=== PATIENT | male | born 1950 | race Caucasian/White ===

== ENCOUNTER 2018-04-13 13:36 | Inpatient (IN) | payer MEDICARE, MEDICAID ==
[~2018-04-13] VITALS: Ht 172.7 cm; Wt 62.6 kg
--- NOTE | 2018-04-13 13:40 | NUR ---
BIB RA 60 FROM [facility], SHORT OF BREATH X 2 DAYS, WORSE X 1 HR ASSOCIATED W/ CHEST PRESSURE, PT WAS PUT ON MONITOR. RT AND MD AT .
[2018-04-13] MEDS ORDERED: IPRATROPIUM NEB FS 0.5 MG/2.5 ML AMPUL.NEB ONE (13:46)
[2018-04-13] MEDS ORDERED: ALBUTEROL FS 2.5 MG/3 ML VIAL.NEB ONE (13:46)
[2018-04-13] MEDS ORDERED: ALBUTEROL FS 2.5 MG/3 ML VIAL.NEB NEB ONE (14:00)
[2018-04-13] MEDS ORDERED: IPRATROPIUM NEB FS 0.5 MG/2.5 ML AMPUL.NEB NEB ONE (14:00)
--- NOTE | 2018-04-13 14:23 | NUR ---
PT UNABLE TO GIVEN URINE AT THIS MOMENT.
[2018-04-13 14:26] LABS: BASOPHILS % (AUTO) 0.2 % (0.0-2.0); EOSINOPHILS % (AUTO) 0.8 % (0.0-6.0); HEMATOCRIT 30 % (39-51); HEMOGLOBIN 9.8 g/dL (13.5-17.5); LYMPHOCYTES # (AUTO) 0.8 /CMM (0.8-4.8); LYMPHOCYTES % (AUTO) 9.2 % (20.0-44.0); MEAN CORPUSCULAR HEMOGLOBIN 31 PG (26.0-33.0); MEAN CORPUSCULAR HGB CONC 33 g/dl (31.0-36.0); MEAN CORPUSCULAR VOLUME 95 fL (80-96); MONOCYTES # (AUTO) 0.1 /CMM (0.1-1.30); MONOCYTES % (AUTO) 1.2 % (2.0-12.0); NEUTROPHILS # (AUTO) 8.1 /CMM (1.8-8.9); NEUTROPHILS % (AUTO) 88.6 % (43.0-81.0); PLATELET COUNT (AUTO) 278 /CMM (150-450); RDW COEFFICIENT OF VARIATION 16.7 (11.5-15.0); RED BLOOD CELL COUNT(AUTO) 3.18 MIL/uL (4.5-6.0); WHITE BLOOD COUNT (AUTO) 9.1 K/uL (4.3-11.0)
[2018-04-13 14:36] LABS: CALCIUM, SERUM 8.7 mg/dL (8.5-10.1); CARBON DIOXIDE 37 mmol/L (21-32); CHLORIDE 101 mmol/L (98-107); CREATININE 0.4 mg/dL (0.6-1.3); GLUCOSE 139 mg/dL (74-106); POTASSIUM 3.6 mmol/L (3.5-5.1); SODIUM SERUM 137 mmol/L (136-145); UREA NITROGEN, BLOOD 30 mg/dL (7-18)
[2018-04-13 14:44] LABS: INR 0.97 (0.85-1.15); TROPONIN I < 0.017 ng/mL (0.00-0.056)
[2018-04-13 14:45] LABS: ALANINE AMINOTRANSFERASE 41 U/L (12-78); ALBUMIN 2.2 g/dL (3.4-5.0); ALKALINE PHOSPHATASE 105 U/L (46-116); ASPARTATE AMINOTRANSFERASE 20 U/L (15-37); BILIRUBIN,DIRECT 0.1 mg/dL (0.0-0.2); BILIRUBIN,TOTAL 0.2 mg/dL (0.2-1.0); TOTAL PROTEIN, SERUM 6.7 g/dL (6.4-8.2)
[2018-04-13] MEDS ORDERED: IV NS 0.9% 500 ML BAG IV ONE (15:00)
[2018-04-13] MEDS ORDERED: GUAI600T53 PO (15:02)
[2018-04-13] MEDS ORDERED: IOHEXOL-350 100 ML VIAL IV ONE (15:05)
[2018-04-13] MEDS ORDERED: CT SWABBABLE VALVE TRANS SET 1 EA INFUS.SET MC ONE (15:05)
[2018-04-13] MEDS ORDERED: IV NS 0.9% 250 ML IV ONE (15:05)
[2018-04-13] MEDS ORDERED: MELA3TAB PO (15:14)
[2018-04-13] MEDS ORDERED: DOCU-141 PO (15:14)
[2018-04-13] MEDS ORDERED: MAGN400O6 PO (15:14)
[2018-04-13] MEDS ORDERED: HEPA50008 SQ (15:14)
[2018-04-13] MEDS ORDERED: ASPI-1152 PO (15:14)
[2018-04-13] MEDS ORDERED: SERT25TA PO (15:14)
[2018-04-13] MEDS ORDERED: POLY17PO4 PO (15:14)
[2018-04-13] MEDS ORDERED: ATOR40TA PO (15:14)
[2018-04-13] MEDS ORDERED: MAGN400T26 PO (15:14)
[2018-04-13] MEDS ORDERED: SENN-167 PO (15:14)
[2018-04-13] MEDS ORDERED: PRED5TAB PO (15:14)
[2018-04-13] MEDS ORDERED: ACID1TAB12 PO (15:14)
[2018-04-13] MEDS ORDERED: IPRA0.2S9 IH (15:14)
[2018-04-13] MEDS ORDERED: LACT20SO4 PO (15:14)
[2018-04-13] MEDS ORDERED: SODI45SP10 NS (15:14)
[2018-04-13] MEDS ORDERED: ACET-868 PO (15:18)
[2018-04-13] MEDS ORDERED: ALBU2.5V38 IH (15:18)
[2018-04-13] MEDS ORDERED: INSU100V27 SQ (15:18)
[2018-04-13] MEDS ORDERED: ONDA4TAB5 PO (15:18)
[2018-04-13] MEDS ORDERED: BLOO-668 IN (15:18)
--- NOTE | 2018-04-13 15:49 | NUR ---
PAGED [facility] FOR PANEL - RIFFLER TENDER LABORATORY COORDINATOR HENRY LEDEZMA
--- NOTE | 2018-04-13 16:17 | NUR ---
CALLED NURSE SUP FOR ICU BED
[2018-04-13 16:38] LABS: APPEARANCE,URINE Cloudy (CLEAR); BILIRUBIN,URINE Negative (NEGATIVE); BLOOD, URINE Moderate Ery/uL (NEGATIVE); COLOR,URINE Yellow (YELLOW); KETONES,URINE Trace (NEGATIVE); LEUKOCYTE ESTERASE ,URINE Negative (NEGATIVE); NITRITE, URINE Negative (NEGATIVE); PROTEIN,URINE 30 mg/dl (NEGATIVE); UGLUCOSE Negative (NEGATIVE); UROBILINOGEN,URINE 0.2 EU/dL (0.2)
[2018-04-13 16:51] LABS: BACTERIA,URINE Moderate /HPF (None Seen); RBC,URINE 21-50 /HPF (0-2)
[2018-04-13 16:52] LABS: SQUAMOUS EPITHELIAL CELL,UR Rare /HPF (None Seen); URINE AMORPHOUS URATE Moderate /HPF (None Seen)
[2018-04-13] MEDS ORDERED: ONDANSETRON HCL/PF 4 MG/2 ML VIAL IVP PRN (17:00)
[2018-04-13] MEDS ORDERED: MORPHINE SULFATE INJ 2 MG/ML DISP.SYRIN IV PRN (17:00)
[2018-04-13] MEDS ORDERED: IPRATROPIUM NEB FS 0.5 MG/2.5 ML AMPUL.NEB NEB PRN (17:00)
[2018-04-13] MEDS ORDERED: LORAZEPAM INJ 2 MG/ML VIAL IV PRN (17:00)
[2018-04-13] MEDS ORDERED: ALBUTEROL FS 2.5 MG/3 ML VIAL.NEB NEB PRN (17:00)
[2018-04-13] MEDS ORDERED: PIPERACILLIN /TAZOBACTAM 3.375 G VIAL IV ONE (17:35)
[2018-04-13] MEDS ORDERED: PIPERACILLIN /TAZOBACTAM 3.375 G in IV NS 0.9% 50 ML IV SCH (18:00)
[2018-04-13] MEDS ORDERED: PIPERACILLIN /TAZOBACTAM 3.375 G in IV D5W 50 ML IV SCH (18:00)
[2018-04-13 18:10] VITALS: BP 129/80
--- NOTE | 2018-04-13 18:10 | NUR ---
APPEALS MANAGER DIDIER E RECEIVED PATIENT FROM ER WITH DX PNA UNDER CARE HENRY RN SPECIALIST MANAGERS ,PATIENT ALERT , ORIENTED X4, SPEAKS KYRGYZ AND POLISH ,PLACED ON TELE MONITOR SR 88 ,PLACED ON IVF ORDERED , HOSPITAL ORIENTATION DONE ,VS TAKEN BODY CHECK , PICTURE DONE ON 7L BY SKYE GONZALEZ NO SOB NOTED SAT 985 , ALL NEEDS ATTENDED ,WILL CONT TO MONITOR CLOSELY , AT BEDSIDE
[2018-04-13] MEDS: PANTOPRAZOLE 40 MG VIAL IV SCH (18:41)
[2018-04-13] MEDS: ENOXAPARIN SODIUM 30 MG/0.3 ML DISP.SYRIN SQ SCH (18:42)
[2018-04-13] MEDS: IV NS 0.9% 1,000 ML IV PRN (19:02)
--- NOTE | 2018-04-13 19:30 | NUR ---
PRODUCTION ASSOCIATE: RECEIVED PT ALERT AND ORIENTED X 3. ON 7L 02 VIA FACE MASK WT TACHYPNEA AND SHORTNESS OF BREATH. O2 SAT ABOVE 94%. NO C/O PAIN AT THIS TIME. AFEBRILE. SR WT OCCASIONAL PVCs ON BASEBALL PLAYER. BP WNL. ABLE TO USE URINAL. RFA IV RUNNING NS AT 75ML/HR WT NO S/S OF INFILTRATION. PLACED ON HIGH-DE JESUS'S. SAFETY PRECAUTION NOTED. WILL CONTINUE TO MONITOR. CALL LIGHT WITHIN REACH.
[2018-04-13 20:00] VITALS: BP 128/78
[2018-04-13 21:00] VITALS: BP 121/74
[2018-04-13 22:01] VITALS: BP 132/86
[2018-04-13 23:00] VITALS: BP 130/80
[2018-04-14] VITALS (27 sets, daily range): BP systolic 97–172; BP diastolic 56–111
--- NOTE | 2018-04-14 | NUR ---
BUREAU DIRECTOR: PLACED ON 5L 02 VIA FACE MASK. C/O GEN. BODY PAIN (11/11) AND REQUESTED TYLENOL. MD INFORMED AND AGREED TO GIVE TYLENOL.
[2018-04-14] MEDS: PIPERACILLIN /TAZOBACTAM 3.375 G in IV D5W 50 ML IV SCH ×5 (00:05→23:54)
[2018-04-14] MEDS: ACETAMINOPHEN 325 MG TABLET PO PRN ×2 (00:06→21:08)
--- NOTE | 2018-04-14 01:00 | NUR ---
MARINE DRAFTER: REASSESSED AFTER GIVEN TYLENOL WT GOOD EFFECT. PT. VERBALIZED RELIEF FROM GEN. BODY PAIN (0/10). REQUESTED TO BE PLACED ON NASAL CANNULA AT 4LPM. NO ACUTE DISTRESS. WILL CONTINUE TO MONITOR.
--- NOTE | 2018-04-14 04:05 | NUR ---
LOCAL COMPANY TANKER DRIVER: ATIVAN GIVEN FOR ANXIETY M/B RESTLESSNESS. REFUSED AM CARE AT THIS TIME. WILL TRY AGAIN LATER. SAFETY PRECAUTION NOTED.
--- NOTE | 2018-04-14 04:30 | NUR ---
WAITRESS: REASSESSED AFTER GIVEN ATIVAN FOR RESTLESSNESS AND ANXIETY WT GOOD EFFECT. PT. EYES CLOSED, EASILY AROUSED WHEN CALLED BY NAME. NO ACUTE DISTRESS. NO RESTLESSNESS AT THIS TIME. STILL ON 4L 02 VIA NC. WILL CONTINUE TO MONITOR.
--- NOTE | 2018-04-14 06:35 | NUR ---
PHARMACIST TECHNICIAN: STILL ON 4L 02 VIA NC WT NO ACUTE DISTRESS. NO EVIDENCE OF DISCOMFORT. PT ASLEEP AT THIS TIME. SAFETY PRECAUTION NOTED AT ALL TIMES.
--- NOTE | 2018-04-14 07:00 | NUR ---
RN INITIAL NOTES RECEIVED PT A/OX1 WITH CONFUSION. ON 02 AT 4LPM VIA NC. HOB ELEVATED. NO SIGNS OF PAIN NOTED. NO SOB NOTED. IV LINE IN PLACE. IVF INFUSING. PT REPOSITIONED. BLE ELEVATED. WILL MONITOR.
[2018-04-14] MEDS: IV NS 0.9% 1,000 ML IV PRN (07:34)
[2018-04-14 08:23] LABS: ABG BASE EXCESS 7.3 mmol/L; ABG PCO2 63.9 mmHg (35.0-45.0); ABG PH 7.346 (7.350-7.450); ABG PO2 138.2 mmHg (75.0-100.0); AaDO2 15.2 mmHg; COHb 0.3 % (0.5-1.5); MetHb 0.4 % (0.0-1.5); O2Hb 97.3 % (94.0-97.0); SITE, ABG Left Radial; VENT MODE, BG Nasal Cannula
[2018-04-14] MEDS: PANTOPRAZOLE 40 MG VIAL IV SCH (08:26)
--- NOTE | 2018-04-14 08:28 | NUR ---
RT ABG DONE NOTIFIED DR. AGUILAR WITH RESULTS, PLACED ON BIPAP PER MD.
[2018-04-14] MEDS ORDERED: Medication Not On Formulary EA (Albuterol Sulfate 2.5 MG) IH PRN (08:30)
--- NOTE | 2018-04-14 08:30 | NUR ---
RN NOTES 0815 SEEN AND EXAMINED BY DR AGUILAR. REVIEWED H&P AND MEDICATIONS. AWARE OF LAB VALUES AND IMAGING STUDIES. MD ORDERED ADDITIONAL LABS INCLUDING ABG. 0830 DR AGUILAR AWARE OF ABG RESULT. ORDERED TO PUT PT ON BIPAP. PT KEPT HOB ELEVATED. WILL CLOSELY MONITOR.
[2018-04-14 08:40] LABS: BASOPHILS % (AUTO) 0.2 % (0.0-2.0); EOSINOPHILS % (AUTO) 0.4 % (0.0-6.0); HEMATOCRIT 26 % (39-51); HEMOGLOBIN 8.3 g/dL (13.5-17.5); LYMPHOCYTES # (AUTO) 0.9 /CMM (0.8-4.8); LYMPHOCYTES % (AUTO) 15.4 % (20.0-44.0); MEAN CORPUSCULAR HEMOGLOBIN 31 PG (26.0-33.0); MEAN CORPUSCULAR HGB CONC 32 g/dl (31.0-36.0); MEAN CORPUSCULAR VOLUME 98 fL (80-96); MONOCYTES # (AUTO) 0.1 /CMM (0.1-1.30); MONOCYTES % (AUTO) 1.4 % (2.0-12.0); NEUTROPHILS % (AUTO) 82.6 % (43.0-81.0); PLATELET COUNT (AUTO) 256 /CMM (150-450); RDW COEFFICIENT OF VARIATION 17.8 (11.5-15.0); RED BLOOD CELL COUNT(AUTO) 2.71 MIL/uL (4.5-6.0); WHITE BLOOD COUNT (AUTO) 6.1 K/uL (4.3-11.0)
[2018-04-14 08:56] LABS: CALCIUM, SERUM 7.8 mg/dL (8.5-10.1); CREATININE 0.5 mg/dL (0.6-1.3); MAGNESIUM 1.7 mg/dL (1.8-2.4); PHOSPHORUS 2.2 mg/dL (2.5-4.9); POTASSIUM 3.2 mmol/L (3.5-5.1)
[2018-04-14 08:58] LABS: IRON, SERUM 74 ug/dl (50-175); TOTAL IRON BINDING CAPACITY 177 ug/dl (250-450)
[2018-04-14 09:00] LABS: TROPONIN I < 0.017 ng/mL (0.00-0.056)
[2018-04-14] MEDS: ASPIRIN EC 81 MG TABLET.DR PO SCH (09:00)
[2018-04-14 09:09] LABS: CHOLESTEROL 130 mg/dL (<200); FERRITIN 215 ng/mL (8-388); HDL CHOLESTEROL 39 mg/dL (40-60); LDL 67 mg/dL (0-99); THYROID STIMULATING HORMONE 2.191 uIU/mL (0.358-3.74); TRIGLYCERIDES 169 mg/dL (30-150)
--- NOTE | 2018-04-14 09:53 | NUR ---
RT NOTE: PER HENRY LEDEZMA(BLOOD BANK ASSISTANT) PATIENT LOOKS MORE ALERT AND ORDERED TO TAKE BIPAP OFF. PATIENT WAS TAKEN OFF BIPAP AND PLACED ON 3LPM VIA NASAL CANNULA. PATIENT STATES THAT HE FEELS BETTER. RR=30-35 BPM AND SP02=95%. WILL CONTINUE TO MONITOR.
[2018-04-14] MEDS ORDERED: POTASSIUM CHLORIDE 20 MEQ TAB.PRT.SR PO ONE (10:00)
[2018-04-14] MEDS ORDERED: Magnesium 1GM/D5W 100ML PREMIX 100 ML IV ONE (10:00)
[2018-04-14] MEDS: predniSONE 10 MG TABLET PO SCH ×2 (10:00→13:13)
--- NOTE | 2018-04-14 11:21 | NUR ---
RN NOTE: PATIENT REFUSED TO EAT BREAKFAST, ASLEEP, EASILY AROUSAL. PO MEDS NOT GIVEN DUE TO PATIENT'S CONDITION. DESATURATES 80S. RT AT BEDSIDE.
[2018-04-14] MEDS ORDERED: K PHOS NEUTRAL 250 MG TABLET PO ONE (11:30)
--- NOTE | 2018-04-14 11:37 | NUR ---
RT PT SPO2 DROPPED. PLACED BACK ON BIPAP. FAMILY MEMBER REFUSED. PLACED PT ON VENTURI MASK 12L 40%, PT SPO2 INCREASED TO 95% WILL CONTINUE TO MONITOR. RN NOTIFIED.
[2018-04-14] MEDS: POTASSIUM CL. PREMIX PERIPHER. 50 ML IV SCH ×2 (11:46→13:15)
[2018-04-14] MEDS ORDERED: NEUTRA PHOS 1 POWD.PACKET PO ONE (12:30)
[2018-04-14] MEDS: IPRATROPIUM NEB FS 0.5 MG/2.5 ML AMPUL.NEB IH SCH ×2 (12:59→19:30)
[2018-04-14] MEDS: BISACODYL SUPP (10 MG) 10 MG/SUPP.RECT SUPP.RECT RC PRN (14:20)
[2018-04-14] MEDS: methylPREDNISolone SOD SUCC 125 MG/2ML VIAL IV SCH ×2 (14:56→21:07)
[2018-04-14] MEDS: ALBUTEROL FS 2.5 MG/3 ML VIAL.NEB NEB SCH ×3 (15:19→22:57)
[2018-04-14] MEDS: IPRATROPIUM NEB FS 0.5 MG/2.5 ML AMPUL.NEB NEB SCH ×3 (15:19→22:57)
--- NOTE | 2018-04-14 17:32 | NUR ---
RN NOTES; PATIENT ALERT AWAKE ORIENTED X 3. ABLE TO VERBALIZE NEEDS. CONTINUE ON OXYGEN THERAPY VIA VENTURI MASK. TITRATION PER RT. MAINTAINS SPO2 >91%. EPISODES OF SOB. CONTINUE ON SOLU-MEDROL IV & ATB THERAPY. ALL NEEDS ATTENDED. C/O CONSTIPATION, RECTAL SUPPOSITORY WAS GIVEN PER HENRY N.P's ORDER, EFFECTIVE. BOWEL MOVEMENT X1 DURING SHIFT. SAFETY MEASURES OBSERVED. CALL LIGHT WITHIN REACH. WILL CONTINUE TO MONITOR.
--- NOTE | 2018-04-14 17:57 | NUR ---
RN NOTE: PATIENT REFUSED TO NASAL SWAB FOR INFLUENZA ROUTINE. EXPLAINED PROCEDURE, RISK & BENEFITS, STILL REFUSED. RESPECT PATIENT RIGHTS. WILL ATTEMPT LATER.
--- NOTE | 2018-04-14 18:06 | NUR ---
RN NOTE: INFLUENZA SWAB COLLECTED BY COKE BURNER.
--- NOTE | 2018-04-14 20:00 | NUR ---
RN INITIAL NOTES RECEIVED PT IN BED, A & O X3, AT BED SIDE. ON VENTURI MASK @ 35%. HOB ELEVATED. NO SIGNS OF PAIN NOTED. NO SOB NOTED. IV LINE IN PLACE S/L. PT REPOSITIONED. BLE ELEVATED. CALL LIGHT WITHIN REACH. BED IN LOW LOCKED POSITION. WILL CONT TO MONITOR.
--- NOTE | 2018-04-14 20:46 | NUR ---
RECEIVED PT ON VENTURI MASK 35%. PT IS AWAKE AND ALERT. NO RESP DISTRESS. PT IS RECEIVING Q4 BREATHING TX. O2 SAT 96%. AT BEDSIDE. WILL CONTINUE TO MONITOR.
[2018-04-14] MEDS: ATORVASTATIN 40 MG TABLET PO SCH (21:08)
[2018-04-14] MEDS: ENOXAPARIN SODIUM 30 MG/0.3 ML DISP.SYRIN SQ SCH (21:08)
[2018-04-15] VITALS (24 sets, daily range): BP systolic 116–153; BP diastolic 68–89
[2018-04-15] MEDS: IPRATROPIUM NEB FS 0.5 MG/2.5 ML AMPUL.NEB IH SCH ×4 (01:30→19:30)
[2018-04-15] MEDS: ALBUTEROL FS 2.5 MG/3 ML VIAL.NEB NEB SCH ×6 (03:20→23:29)
[2018-04-15] MEDS: IPRATROPIUM NEB FS 0.5 MG/2.5 ML AMPUL.NEB NEB SCH ×6 (03:20→23:29)
[2018-04-15 04:35] LABS: BASOPHILS % (AUTO) 0.2 % (0.0-2.0); HEMATOCRIT 27 % (39-51); HEMOGLOBIN 8.9 g/dL (13.5-17.5); LYMPHOCYTES # (AUTO) 0.9 /CMM (0.8-4.8); LYMPHOCYTES % (AUTO) 10.1 % (20.0-44.0); MEAN CORPUSCULAR HEMOGLOBIN 32 PG (26.0-33.0); MEAN CORPUSCULAR HGB CONC 33 g/dl (31.0-36.0); MEAN CORPUSCULAR VOLUME 97 fL (80-96); MONOCYTES # (AUTO) 0.2 /CMM (0.1-1.30); MONOCYTES % (AUTO) 1.8 % (2.0-12.0); NEUTROPHILS # (AUTO) 7.7 /CMM (1.8-8.9); NEUTROPHILS % (AUTO) 87.9 % (43.0-81.0); PLATELET COUNT (AUTO) 272 /CMM (150-450); RDW COEFFICIENT OF VARIATION 16.9 (11.5-15.0); RED BLOOD CELL COUNT(AUTO) 2.78 MIL/uL (4.5-6.0); WHITE BLOOD COUNT (AUTO) 8.8 K/uL (4.3-11.0)
[2018-04-15 04:53] LABS: ALANINE AMINOTRANSFERASE 36 U/L (12-78); ALBUMIN 2.1 g/dL (3.4-5.0); ALKALINE PHOSPHATASE 86 U/L (46-116); ASPARTATE AMINOTRANSFERASE 15 U/L (15-37); BILIRUBIN,TOTAL 0.2 mg/dL (0.2-1.0); CARBON DIOXIDE 37 mmol/L (21-32); CHLORIDE 100 mmol/L (98-107); CREATININE 0.4 mg/dL (0.6-1.3); GLUCOSE 168 mg/dL (74-106); MAGNESIUM 1.9 mg/dL (1.8-2.4); PHOSPHORUS 2.3 mg/dL (2.5-4.9); POTASSIUM 3.3 mmol/L (3.5-5.1); SODIUM SERUM 138 mmol/L (136-145); UREA NITROGEN, BLOOD 17 mg/dL (7-18)
[2018-04-15 04:55] LABS: TROPONIN I < 0.017 ng/mL (0.00-0.056)
[2018-04-15] MEDS: PIPERACILLIN /TAZOBACTAM 3.375 G in IV D5W 50 ML IV SCH ×3 (05:08→17:11)
[2018-04-15] MEDS: methylPREDNISolone SOD SUCC 125 MG/2ML VIAL IV SCH ×3 (05:08→21:05)
--- NOTE | 2018-04-15 06:07 | NUR ---
RN CLOSING NOTES NO SIGNIFICANT CHANGE IN PT CONDITION OVER NIGHT. WILL ENDORSE TO AM RN
[2018-04-15] MEDS: ACETAMINOPHEN 325 MG TABLET PO PRN (06:12)
--- NOTE | 2018-04-15 08:00 | NUR ---
ICU/RN AM SHIFT INITIAL NOTES RECEIVED PT AWAKE SITTING IN BED, HAVING ON GOING BREATHING TX, PT A/O X 3, NO ACUTE RESPIRATORY DISTRESS, PT NOTED TO BE ANXIOUS, SATURATING @ 94%, DIMINISHED LUNG SOUNDS, ON TELE MONITORING WITH SINUS RHYTHM, HR 83. IV SITES PATENT WITH NO S/S OF INFECTION, ON TKO. PT IS COMFORTABLE, SCHEDULED AM MEDS TO BE GIVEN. CL WITHIN REACHED AND SAFETY MAINTAINED. ON GOING MONITORING.
[2018-04-15] MEDS: ASPIRIN EC 81 MG TABLET.DR PO SCH (08:28)
[2018-04-15] MEDS: PANTOPRAZOLE 40 MG VIAL IV SCH (08:28)
--- NOTE | 2018-04-15 09:08 | NUR ---
ICU/RN MEDICAL RECORDS - CHEST CT SCAN CONSENT OBTAINED FROM PT TO RELEASE RESULT OF CHEST CT SCAN PRE-SURGERY LAST FEBRUARY 12, 2018. REQUEST FORM TO RELEASE SAID INFORMATION FAXED TO [facility] MEDICAL RECORDS WITH CONFIRMATION OF RECEIVED RECORDS, FILED IN PT'S CHART. Addendum: 04/15/18 at 1124 by ZAID BROWN RN ADDENDUM: ADDITIONAL REQUEST FOR INFORMATION ADDED ON INFO REQUEST FORM ORDERED BY DR. GUERRIER, FAXED.
[2018-04-15] MEDS: POTASSIUM CL. PREMIX PERIPHER. 50 ML IV SCH ×2 (09:54→10:52)
--- NOTE | 2018-04-15 10:45 | NUR ---
ICU/RN ROUNDS - DR. GUERRIER PT SEEN & EXAMINED BY DR. GUERRIER, WITH VERBAL ORDERS TO OBTAIN MEDICAL RECORDS TO INCLUDE PATHOLOGY RESULTS. ORDER NOTED AND CARRIED, TO ADD REQUEST TO INFORMATION RELEASE.
[2018-04-15] MEDS ORDERED: K PHOS NEUTRAL 250 MG TABLET PO ONE (11:00)
--- NOTE | 2018-04-15 11:00 | NUR ---
ICU/RN ROUNDS - DR. THRASHER UPDATED PT'S CONDITION. PT SEEN & EXAMINED BY DR. THRASHER. WITH VERBAL ORDER RECEIVED TO DRAW ABG. RT NOTIFIED.
[2018-04-15 12:02] LABS: THYROID STIMULATING HORMONE 1.213 uIU/mL (0.358-3.74); URIC ACID 1.8 mg/dL (2.6-7.2)
[2018-04-15 12:16] LABS: RETICULOCYTE COUNT 1.6 % (0.6-2.5)
--- NOTE | 2018-04-15 15:29 | NUR ---
ICU/RN ROUNDS - DR. CURRY PT SEEN & EXAMINED BY DR. CURRY. NO NEW ORDERS RECEIVED, BUT PLACED A NOTES TO RELAY RESULTS OF SPUTUM CULTURE ONCE AVAILABLE. MONITORING CONTINUED.
[2018-04-15 16:03] LABS: OCCULT BLOOD STOOL NEGATIVE (NEGATIVE)
--- NOTE | 2018-04-15 17:21 | NUR ---
ICU/RN AFTERNOON ROUNDS PT'S ASSISTED IN PROVIDING PM CARE, NO ACUTE CHANGE OF CONDITION. ON GOING MONITORING.
--- NOTE | 2018-04-15 19:22 | NUR ---
ICU/RN AM SHIFT END NOTES ALL NEEDS MET, NO ACUTE CHANGE OF CONDITION NOTED DURING THE SHIFT. PT ENDORSED TO PM NURSE TO CONTINUE CARE. CL WITHIN REACHED AND SAFETY MAINTAINED.
--- NOTE | 2018-04-15 19:30 | NUR ---
RN INITIAL NOTES RECEIVED PATIENT IN BED, AWAKE, ALERT AND ORIENTED X 3. ON 9L 02 VIA FACE VENTURI MASK, FIO2 35%, TOLERATING WELL. O2 SAT ABOVE 94%.DENIES ANY PAIN OR DISCOMFORT AT THIS TIME. AFEBRILE. SR ON VP SECURITY. BP WNL. ABLE TO USE URINAL. IVs PATENT AND INTACT, FLUSHED WITH NS, NO S/S OF INFILTRATION OR PHLEBITIS NOTED. PLACED ON HIGH-DE JESUS'S POSITION FOR COMFORT. SAFETY PRECAUTIONS OBSERVED. BED IN LOWEST AND LOCKED POSITION, CALL LIGHT LEFT WITHIN EASY REACH. WILL CONTINUE TO CLOSELY MONITOR
--- NOTE | 2018-04-15 20:12 | NUR ---
PT IS AWAKE AND ALERT. NO RESP DISTRESS. PT IS ON VENTURI MASK 35%. PT IS RECEIVING Q4 BREATHING TX. O2 SAT 99%. WILL CONTINUE TO MONITOR.
[2018-04-15] MEDS: ATORVASTATIN 40 MG TABLET PO SCH (21:05)
[2018-04-15] MEDS: ENOXAPARIN SODIUM 30 MG/0.3 ML DISP.SYRIN SQ SCH (21:08)
[2018-04-16] VITALS (25 sets, daily range): BP systolic 122–159; BP diastolic 75–105
--- NOTE | 2018-04-16 | NUR ---
RN NOTES PATIENT REFUSING PHOTOS TO BE TAKEN OF WOUNDS/SKIN ISSUES. EXPLAINED RISKS AND CONSEQUENCES. PATIENT VERBALIZES UNDERSTANDING BUT STILL STRONGLY REFUSING. WILL TRY AGAIN AT A LATER TIME
[2018-04-16] MEDS: PIPERACILLIN /TAZOBACTAM 3.375 G in IV D5W 50 ML IV SCH ×4 (00:03→17:04)
[2018-04-16] MEDS: IPRATROPIUM NEB FS 0.5 MG/2.5 ML AMPUL.NEB IH SCH ×3 (01:15→11:18)
[2018-04-16] MEDS: IPRATROPIUM NEB FS 0.5 MG/2.5 ML AMPUL.NEB NEB SCH ×7 (03:06→23:20)
[2018-04-16] MEDS: ALBUTEROL FS 2.5 MG/3 ML VIAL.NEB NEB SCH ×6 (03:06→23:22)
--- NOTE | 2018-04-16 04:00 | NUR ---
RN NOTES PATIENT STILL HAS NOT PROVIDED SPUTUM SAMPLE. PATIENT STATES "LATER". PATIENT ALSO REFUSING SPUTUM INDUCTION
[2018-04-16 04:38] LABS: HEMATOCRIT 30 % (39-51); HEMOGLOBIN 9.5 g/dL (13.5-17.5); LYMPHOCYTES # (AUTO) 0.8 /CMM (0.8-4.8); MEAN CORPUSCULAR HEMOGLOBIN 31 PG (26.0-33.0); MEAN CORPUSCULAR HGB CONC 32 g/dl (31.0-36.0); MEAN CORPUSCULAR VOLUME 97 fL (80-96); MONOCYTES # (AUTO) 0.2 /CMM (0.1-1.30); MONOCYTES % (AUTO) 1.8 % (2.0-12.0); NEUTROPHILS # (AUTO) 11.1 /CMM (1.8-8.9); NEUTROPHILS % (AUTO) 91.2 % (43.0-81.0); PLATELET COUNT (AUTO) 311 /CMM (150-450); RDW COEFFICIENT OF VARIATION 17.5 (11.5-15.0); RED BLOOD CELL COUNT(AUTO) 3.06 MIL/uL (4.5-6.0); WHITE BLOOD COUNT (AUTO) 12.2 K/uL (4.3-11.0)
[2018-04-16 04:58] LABS: CALCIUM, SERUM 8.5 mg/dL (8.5-10.1); CREATININE 0.7 mg/dL (0.6-1.3); POTASSIUM 3.8 mmol/L (3.5-5.1)
[2018-04-16] MEDS: methylPREDNISolone SOD SUCC 125 MG/2ML VIAL IV SCH ×3 (05:10→21:22)
--- NOTE | 2018-04-16 06:40 | NUR ---
PHOTO COLORER CLOSING NOTES PATIENT RESTING IN BED, APPEARS COMFORTABLY, NOT IN ANY ACUTE DISTRESS. DENIES PAIN OR DISCOMFORT. ALL NEEDS MET THROUGHOUT THE SHIFT. WILL ENDORSE THE PATIENT TO THE AM SHIFT NURSE FOR CONTINUITY OF CARE.
--- NOTE | 2018-04-16 07:30 | NUR ---
ICU/RN: Pt received in bed, calm, cooperative, no distress noted. On venturi mask, tolerating well. SOB noted with turning and repositioning. Does not tolerate ADLs well.
[2018-04-16] MEDS: ASPIRIN EC 81 MG TABLET.DR PO SCH (08:10)
[2018-04-16] MEDS: PANTOPRAZOLE 40 MG VIAL IV SCH (08:10)
--- NOTE | 2018-04-16 09:10 | NUR ---
ICU/RN: Micky Siddiqui NP at bedside; updated on pt status. New orders noted and carried out.
[2018-04-16] MEDS: POTASSIUM CHLORIDE 20 MEQ TAB.PRT.SR PO SCH ×3 (09:18→12:41)
[2018-04-16] MEDS: FUROSEMIDE 40 MG/4 ML VIAL IV SCH ×2 (09:18→12:52)
--- NOTE | 2018-04-16 10:15 | NUR ---
ICU/RN: Dr Alvarado at bedside. Updated on pt status. [facility] records reviewed by .
[2018-04-16 10:17] LABS: *SPE A/G RATIO 0.8 (0.7-1.7); *SPE ALBUMIN 2.2 g/dL (2.9-4.4); *SPE ALPHA-1-GLOBULIN 0.3 g/dL (0.0-0.4); *SPE ALPHA-2-GLOBULIN 0.8 g/dL (0.4-1.0); *SPE BETA GLOBULIN 0.9 g/dL (0.7-1.3); *SPE GLOBULIN, TOTAL 2.9 g/dL (2.2-3.9); *SPE M-SPIKE Not Observed g/dL (Not Observed)
--- NOTE | 2018-04-16 11:03 | NUR ---
WOUND CARE CONSULT: PT PRESENTS CONTINENT AND ABLE TO ASSIST WITH TURNING AND REPOSITIONING IN BED. PT HAS DISCOLORATION ON RT UPPER BACK AND INCISION TO LEFT UPPER BACK WITH OPEN AREA AT EDGE OF INCISION. RECOMMEND SURGICAL CONSULT. ALL SKIN PROTECTION RECOMMENDATIONS DISCUSSED WITH NURSING STAFF. FOAM DRESSING LEFT IN PLACE ON LEFT UPPER BACK AREA. DEFER TO SURGICAL TEAM FOR WOUND TREATMENT PLAN. MD IN AGREEMENT WITH PLAN OF CARE. Addendum: 04/16/18 at 1105 by YESI APONTE WNDNU Amended: Links added.
--- NOTE | 2018-04-16 16:45 | NUR ---
ICU/RN: Dr Garza at bedside. Updated on pt status. Aware that pt is refusing sputum induction; pt does not have s/s coughing, unable to expectorate.
--- NOTE | 2018-04-16 19:22 | NUR ---
ICU/RN: Pt in stable condition, no distress noted. Assisted with feeding, requires frequent brakes due to desaturation when not laying flat. Bedside report given to RN for JESUS.
--- NOTE | 2018-04-16 19:30 | NUR ---
MATERIAL WORKER INITIAL NOTE RECEIVED PATIENT AWAKE ALERT AND ORIENTED, ABLE TO MAKE SIMPLE NEEDS KNOWN. RESPIRATIONS EVEN AND UNLABORED ON VENTURI MASK 9LPM WITH FIO2 35%, SPO2 96%. ON TELE MONITOR SR WITH OCC PVCS. NO S/S OF PAIN OR DISCOMFORT. DINNER AT BEDSIDE FROM HOME, ASSISTED PATIENT WITH FEEDING PATIENT TOLERATES. PATIENT PREFERS LAYING FLAT. SKIN WARM AND DRY TO TOUCH. SIDE RAILS UP AND LOCKED. BED KEPT AT LOWEST POSITION. CALL LIGHT KEPT WITHIN EASY REACH. WILL CONTINUE TO MONITOR.
--- NOTE | 2018-04-16 20:06 | NUR ---
CANDLE MOLDER HAND NOTE PATIENT REFUSED BREATHING TX
--- NOTE | 2018-04-16 20:15 | NUR ---
CASER NOTE AT BEDSIDE, PATIENT TOOK BREATHING TX
--- NOTE | 2018-04-16 20:32 | NUR ---
TRAILER CHIEF NOTE AT BEDSIDE, NUMBER FOR ONCOLOGIST GIVEN. DR. ANDIE CROSS [phone] ([facility]ICE) [phone] ([facility] OFFICE)
--- NOTE | 2018-04-16 21:06 | NUR ---
DISTRICT SALES MANAGER NOTE PATIENT REQUESTING FOR SLEEPING MEDICATION, AT BEDSIDE. MD MADE AWARE, WITH NEW ORDERS NOTED.
[2018-04-16] MEDS ORDERED: TEMAZEPAM 7.5 MG CAPSULE ONE (21:20)
[2018-04-16] MEDS: ATORVASTATIN 40 MG TABLET PO SCH (21:21)
[2018-04-16] MEDS: ENOXAPARIN SODIUM 30 MG/0.3 ML DISP.SYRIN SQ SCH (21:22)
[2018-04-16] MEDS ORDERED: TEMAZEPAM 15 MG CAPSULE PO PRN (21:30)
[2018-04-17] VITALS (25 sets, daily range): BP systolic 122–161; BP diastolic 65–110
--- NOTE | 2018-04-17 | NUR ---
CRANE OPERATOR NOTE PATIENT SLEEPING COMFORTABLY. NO RESPIRATORY DISTRESS NOTED. WILL CONTINUE TO MONITOR.
[2018-04-17] MEDS: PIPERACILLIN /TAZOBACTAM 3.375 G in IV D5W 50 ML IV SCH ×5 (00:36→23:55)
[2018-04-17] MEDS: ALBUTEROL FS 2.5 MG/3 ML VIAL.NEB NEB SCH ×6 (03:30→23:17)
[2018-04-17] MEDS: IPRATROPIUM NEB FS 0.5 MG/2.5 ML AMPUL.NEB NEB SCH ×6 (03:40→23:17)
[2018-04-17 04:40] LABS: HEMATOCRIT 34 % (39-51); HEMOGLOBIN 10.8 g/dL (13.5-17.5); LYMPHOCYTES % (AUTO) 5.7 % (20.0-44.0); MEAN CORPUSCULAR HEMOGLOBIN 31 PG (26.0-33.0); MEAN CORPUSCULAR HGB CONC 32 g/dl (31.0-36.0); MEAN CORPUSCULAR VOLUME 97 fL (80-96); MONOCYTES # (AUTO) 0.3 /CMM (0.1-1.30); MONOCYTES % (AUTO) 1.8 % (2.0-12.0); NEUTROPHILS # (AUTO) 15.9 /CMM (1.8-8.9); NEUTROPHILS % (AUTO) 92.5 % (43.0-81.0); PLATELET COUNT (AUTO) 382 /CMM (150-450); RDW COEFFICIENT OF VARIATION 16.6 (11.5-15.0); RED BLOOD CELL COUNT(AUTO) 3.46 MIL/uL (4.5-6.0); WHITE BLOOD COUNT (AUTO) 17.2 K/uL (4.3-11.0)
[2018-04-17 05:03] LABS: ALBUMIN 2.5 g/dL (3.4-5.0); BILIRUBIN,TOTAL 0.3 mg/dL (0.2-1.0); CALCIUM, SERUM 8.4 mg/dL (8.5-10.1); CREATININE 0.6 mg/dL (0.6-1.3); MAGNESIUM 1.9 mg/dL (1.8-2.4); PHOSPHORUS 3.1 mg/dL (2.5-4.9); POTASSIUM 3.8 mmol/L (3.5-5.1); TOTAL PROTEIN, SERUM 6.9 g/dL (6.4-8.2)
--- NOTE | 2018-04-17 05:26 | NUR ---
COMPENSATION PROGRAMS MANAGER NOTE RELAYED TO MD CRITICAL CO2 LEVEL 42, TRENDING UP FROM PREVIOUS 39, WITH NNO AT THIS TIME.
[2018-04-17] MEDS: methylPREDNISolone SOD SUCC 125 MG/2ML VIAL IV SCH ×3 (05:56→21:33)
--- NOTE | 2018-04-17 06:00 | NUR ---
REHAB TRAINER NOTE BED BATH GIVEN, LINEN CHANGED, PATIENT TOLERATED WELL.
--- NOTE | 2018-04-17 07:20 | NUR ---
RAYMOND MILL OPERATOR CLOSING NOTE NO SIGNIFICANT CHANGES OVERNIGHT, PATIENT SLEPT INTERMITTENTLY. NO C/O PAIN OR DISCOMFORT. TOLERATING VENTURI MASK 35%. KEPT CLEAN AND DRY. ALL NEEDS ANTICIPATED AND MET. SIDE RAILS UP AND LOCKED. BED KEPT AT LOWEST POSITION. CALL LIGHT KEPT WITHIN EASY REACH. CONTINUITY OF CARE ENDORSED TO AM NURSE.
[2018-04-17] MEDS: ASPIRIN EC 81 MG TABLET.DR PO SCH (08:02)
[2018-04-17] MEDS: DOCUSATE SODIUM 100 MG CAPSULE PO SCH (09:00)
[2018-04-17] MEDS ORDERED: DOCUSATE SODIUM LIQ 100 MG/10 ML UDC NG SCH (09:00)
--- NOTE | 2018-04-17 09:00 | NUR ---
ICU/RN: Eusebio Salinas, CARDIAC SONOGRAPHER at bedside. Updated on pt status; informed pt with no BM past 3 days, increasingly withdrawn, no appetite, depressed. Psych consult requested. New orders noted and carried out.
[2018-04-17 09:01] LABS: ABG BASE EXCESS 14.1 mmol/L; ABG PCO2 58.3 mmHg (35.0-45.0); ABG PH 7.456 (7.350-7.450); ABG PO2 78.7 mmHg (75.0-100.0); AaDO2 103.1 mmHg; COHb 0.1 % (0.5-1.5); MetHb 0.6 % (0.0-1.5); O2Hb 94.3 % (94.0-97.0); SITE, ABG Right Radial; VENT MODE, BG VENTURI MASK 35%
[2018-04-17] MEDS: ACETAMINOPHEN 325 MG TABLET PO PRN ×2 (10:08→18:05)
[2018-04-17] MEDS: SALINE NASAL SPRAY 0.65% 1 BOTTLE BOTTLE NS PRN ×2 (10:19→16:34)
--- NOTE | 2018-04-17 10:45 | NUR ---
ICU/RN: Dr Alvarado at bedside, discussing POC with pt's extensively. New orders noted and carried out.
[2018-04-17] MEDS: SERTRALINE HCL 25 MG TABLET PO SCH (11:00)
--- NOTE | 2018-04-17 13:00 | NUR ---
ICU/RN: Pt refusing colace and dulcolax suppository, educated, still refuses.
--- NOTE | 2018-04-17 14:00 | NUR ---
ICU/RN: Pt flat in bed, no distress, breathing even and unlabored. No visitors at bedside and pt appears calm. Refuses turning at this time.
[2018-04-17] MEDS: BISACODYL SUPP (10 MG) 10 MG/SUPP.RECT SUPP.RECT RC PRN (17:09)
--- NOTE | 2018-04-17 17:15 | NUR ---
ICU/RN: Suppository administered for pt c/o constipation; will reassess for effectiveness. at bedside; educated.
--- NOTE | 2018-04-17 17:40 | NUR ---
ICU/RN: Pt c/o severe discomfort from constipation, requesting enema as it has been effective during previous admissions. Educated and pt on med's time of action, and offered alternatives such as prune juice to mobilize stool. Pt and refused. at bedside, extremely anxious. Eusebio Salinas paged, awaiting response.
--- NOTE | 2018-04-17 19:30 | NUR ---
LEAD JAVA DEVELOPER ARCHITECT INITIAL SHIFT NOTES RECEIVED PATIENT IN BED, AWAKE, ALERT AND ORIENTED X3. BREATHING EVEN, LABORED UPON EXERTION, TACHYPNEIC AT BASELINE. ON O2 VIA VENTURI MASK @ 9LPM, 35% FIO2. BEDSIDE MONITOR SHOWS SR/ST 95-110 BPM, WITH OCCASIONAL PVCs. RFA #18G AND LW #20G PATENT AND INTACT, FLUSHED WITH NS, NOTED WITH GOOD VENOUS RETURN, SITES FREE FROM ANY S/S OF INFILTRATION OR PHLEBITIS. PLAN OF CARE DISCUSSED WITH THE PATIENT, WHOM VERBALIZES UNDERSTANDING. CALL LIGHT LEFT WITHIN EASY REACH, BED IN LOWEST AND LOCKED POSITION, WILL CONTINUE TO CLOSELY MONITOR
--- NOTE | 2018-04-17 20:15 | NUR ---
RECEIVED PT AWAKE ON VENTURI MASK 35%. DM B/S. O2 SAT 98%. PT RECEIVING Q4 BREATHING TX. WILL CONTINUE TO MONITOR.
--- NOTE | 2018-04-17 20:35 | NUR ---
RN NOTES PATIENT SEEN AND EXAMINED BY DR VIKKI NELSON. PT WITH C/O CONSTIPATION FOR 3 DAYS WITH ASSOCIATED ABDOMINAL PAIN, DULCOLAX SUPPOSITORY MINIMALLY EFFECTIVE. NEW ORDERS RECEIVED FOR FLEET ENEMA X1 NOW AND PROTONIX PO. WILL CARRY OUT ALL NEW ORDERS
[2018-04-17] MEDS ORDERED: MINERAL OIL 133 ML (PYXIS) 1 EA ENEMA RC ONE (21:00)
--- NOTE | 2018-04-17 21:30 | NUR ---
RN NOTES FLEET ENEMA EFFECTIVE. PATIENT NOTED WITH MODERATE SIZED BM WITH HARD STOOL. PATIENT VERBALIZING IMPROVEMENT IN ABDOMINAL DISCOMFORT, NOW RESTING COMFORTABLY. WILL CONTINUE TO CLOSELY MONITOR
[2018-04-17] MEDS: TEMAZEPAM 7.5 MG CAPSULE PO PRN (21:33)
[2018-04-17] MEDS: ENOXAPARIN SODIUM 30 MG/0.3 ML DISP.SYRIN SQ SCH (21:33)
[2018-04-17] MEDS: ATORVASTATIN 40 MG TABLET PO SCH (21:33)
[2018-04-18] VITALS (23 sets, daily range): BP systolic 133–159; BP diastolic 83–113
--- NOTE | 2018-04-18 02:00 | NUR ---
RN NOTES PATIENT NOTED WITH URINE SOAKED SHEETS. PATIENT STATES HE WAS NOT ABLE TO USE THE URINAL IN TIME. PATIENT VOIDED TWICE SINCE MIDNIGHT
[2018-04-18] MEDS: IPRATROPIUM NEB FS 0.5 MG/2.5 ML AMPUL.NEB NEB SCH ×6 (03:12→23:06)
[2018-04-18] MEDS: ALBUTEROL FS 2.5 MG/3 ML VIAL.NEB NEB SCH ×6 (03:13→23:06)
[2018-04-18 04:40] LABS: HEMATOCRIT 34 % (39-51); HEMOGLOBIN 11.1 g/dL (13.5-17.5); LYMPHOCYTES # (AUTO) 0.9 /CMM (0.8-4.8); LYMPHOCYTES % (AUTO) 3.6 % (20.0-44.0); MEAN CORPUSCULAR HEMOGLOBIN 32 PG (26.0-33.0); MEAN CORPUSCULAR HGB CONC 33 g/dl (31.0-36.0); MEAN CORPUSCULAR VOLUME 97 fL (80-96); MONOCYTES # (AUTO) 0.7 /CMM (0.1-1.30); MONOCYTES % (AUTO) 2.8 % (2.0-12.0); NEUTROPHILS # (AUTO) 22.1 /CMM (1.8-8.9); NEUTROPHILS % (AUTO) 93.6 % (43.0-81.0); PLATELET COUNT (AUTO) 427 /CMM (150-450); RDW COEFFICIENT OF VARIATION 16.8 (11.5-15.0); RED BLOOD CELL COUNT(AUTO) 3.53 MIL/uL (4.5-6.0); WHITE BLOOD COUNT (AUTO) 23.7 K/uL (4.3-11.0)
[2018-04-18] MEDS: methylPREDNISolone SOD SUCC 125 MG/2ML VIAL IV SCH ×3 (04:52→22:34)
[2018-04-18] MEDS: LORAZEPAM 0.5 MG TABLET PO PRN (04:52)
[2018-04-18 04:55] LABS: CALCIUM, SERUM 8.7 mg/dL (8.5-10.1); CREATININE 0.5 mg/dL (0.6-1.3); POTASSIUM 3.5 mmol/L (3.5-5.1)
[2018-04-18 04:57] LABS: BAND % (MANUAL) 7 % (0.0-5.0); LYMPHOCYTES % (MANUAL) 4 % (16-48); MONOCYTES % (MANUAL) 2 % (0-11.0); NEUTROPHILS % (MANUAL) 87 (42-76)
[2018-04-18] MEDS: SALINE NASAL SPRAY 0.65% 1 BOTTLE BOTTLE NS PRN (05:00)
[2018-04-18] MEDS: PIPERACILLIN /TAZOBACTAM 3.375 G in IV D5W 50 ML IV SCH ×3 (05:00→17:05)
--- NOTE | 2018-04-18 06:57 | NUR ---
SAP BOBJ DEVELOPER CLOSING NOTES PATIENT RESTING COMFORTABLY IN BED. NO ACUTE CHANGES THROUGHOUT THE SHIFT. WILL ENDORSE THE PATIENT TO THE AM SHIFT NURSE FOR CONTINUITY OF CARE
--- NOTE | 2018-04-18 07:15 | NUR ---
RN INITIAL NOTES RECEIVED PT AWAKE, A/OX3. ON VENTURI MASK AT 35%. NO SOB NOTED. DENIES ANY PAIN. IV LINES IN PLACE. PT CONTINENT, USES URINAL, CLEAN AND DRY. PT REPOSITIONED. BLE ELEVATED. CALL LIGHT WITHIN REACH. WILL MONITOR.
[2018-04-18] MEDS: DOCUSATE SODIUM 100 MG CAPSULE PO SCH (08:06)
[2018-04-18] MEDS: ASPIRIN EC 81 MG TABLET.DR PO SCH (08:06)
[2018-04-18] MEDS: SERTRALINE HCL 25 MG TABLET PO SCH (08:07)
[2018-04-18] MEDS: PANTOPRAZOLE 40 MG TABLET.DR PO SCH (08:07)
--- NOTE | 2018-04-18 09:30 | NUR ---
RN NOTES 09 SEEN AND EXAMINED BY BE ALFRED NP. PT A/OX3. ON VIA AZ. NO SOB NOTED. 02 SAT 99%. AWARE OF CURRENT LAB VALUES: WBC 23.7, HGB 11.1, HCT 34, BUN 27, CREA 0.5. ORDERED TO DOWNGRADE PT TO [facility]. PT AND NOTIFIED. 09 SEEN AND EXAMINED BY DR THRASHER. AWARE OF CURRENT LAB VALUES. PT ON VIA AZ. 02 SAT 99%. NO SOB NOTED. CLEARED PT FOR DOWNGRADE. WILL CONTINUE TO MONITOR.
--- NOTE | 2018-04-18 18:18 | NUR ---
RN NOTES PT TRANSFERRED TO ROOM 110. PT AWAKE, A/OX2-3. 0N 02 AT 4LPM VIA NC. VS WNL. AT BEDSIDE AWARE OF TRANSFER. PT IN STABVLE CONDITION. REPORT GIVEN TO ROSARIO GARCIA. TOOK OVER PT'S CARE.
--- NOTE | 2018-04-18 18:19 | NUR ---
rn notes assumed pt care from ROSARIO Turner; pt awake and alert; denies pain at this time. at bedside. pt denies pain. remains on o2 inh via nc , no sob noted. safety and comfort ensured. sinus tach on the monitor [id number].
[2018-04-18] MEDS: ACETAMINOPHEN 325 MG TABLET PO PRN (18:53)
--- NOTE | 2018-04-18 20:30 | NUR ---
BIANCA RN OPENING NOTES RECEIVED REPORT FROM AM RN. PATIENT A/A/O X3, ABLE TO MAKE NEEDS KNOWN & STATE PAIN. BREATHING EVEN & UNLABORED, TOLERATING O2 @ 4LPM. DENIES ANY SOB OR DIFFICULTY BREATHING. ON TELE W/ SINUS RHYTHM W/ OCCASIONAL PVC & PAC, HR 94. LEFT WRIST IV #20 & RIGHT FOREARM IV #18 INTACT & PATENT W/ DRESSING CDI, SLAINE LOCKED. SKIN WARM, DRY & INTACT. DENIES ANY PAIN OR DISCOMFORT @ THIS TIME. SAFETY MEASURES IN PLACE W/ BED ALARM ON & CALL LIGHT WITHIN REACH. INSTRUCTED TO CALL FOR ASSISTANCE. WILL CONTINUE TO MONITOR CLOSELY.
[2018-04-18] MEDS: TEMAZEPAM 7.5 MG CAPSULE PO PRN (22:34)
[2018-04-18] MEDS: ATORVASTATIN 40 MG TABLET PO SCH (22:34)
[2018-04-18] MEDS: ENOXAPARIN SODIUM 30 MG/0.3 ML DISP.SYRIN SQ SCH (22:43)
[2018-04-19] VITALS: BP 130/80
[2018-04-19] MEDS: IPRATROPIUM NEB FS 0.5 MG/2.5 ML AMPUL.NEB NEB SCH ×7 (00:03→23:08)
[2018-04-19] MEDS: ALBUTEROL FS 2.5 MG/3 ML VIAL.NEB NEB SCH ×7 (00:03→23:08)
[2018-04-19] MEDS: PIPERACILLIN /TAZOBACTAM 3.375 G in IV D5W 50 ML IV SCH ×3 (00:22→14:00)
[2018-04-19 04:00] VITALS: BP 127/80
[2018-04-19] MEDS: methylPREDNISolone SOD SUCC 125 MG/2ML VIAL IV SCH ×3 (05:32→20:50)
[2018-04-19 06:41] LABS: HEMATOCRIT 34 % (39-51); HEMOGLOBIN 10.8 g/dL (13.5-17.5); LYMPHOCYTES # (AUTO) 0.6 /CMM (0.8-4.8); LYMPHOCYTES % (AUTO) 1.8 % (20.0-44.0); MEAN CORPUSCULAR HEMOGLOBIN 32 PG (26.0-33.0); MEAN CORPUSCULAR HGB CONC 32 g/dl (31.0-36.0); MEAN CORPUSCULAR VOLUME 99 fL (80-96); MONOCYTES # (AUTO) 0.5 /CMM (0.1-1.30); MONOCYTES % (AUTO) 1.5 % (2.0-12.0); NEUTROPHILS # (AUTO) 31.8 /CMM (1.8-8.9); NEUTROPHILS % (AUTO) 96.7 % (43.0-81.0); PLATELET COUNT (AUTO) 336 /CMM (150-450); RDW COEFFICIENT OF VARIATION 17.1 (11.5-15.0); RED BLOOD CELL COUNT(AUTO) 3.44 MIL/uL (4.5-6.0)
[2018-04-19 06:44] LABS: CALCIUM, SERUM 8.6 mg/dL (8.5-10.1); CREATININE 0.6 mg/dL (0.6-1.3); POTASSIUM 3.5 mmol/L (3.5-5.1)
[2018-04-19 06:48] LABS: WHITE BLOOD COUNT (AUTO) 32.9 K/uL (4.3-11.0)
--- NOTE | 2018-04-19 06:50 | NUR ---
BIANCA RN NOTES RECEIVED CALL FROM LAB FOR WBC = 32.9. WILL ENDORSE TO AM NURSE TO F/U.
--- NOTE | 2018-04-19 06:59 | NUR ---
BIANCA RN NOTES RECEIVED CALL FROM LAB FOR CO2 = 42. WILL ENDORSE TO AM NURSE TO F/U
[2018-04-19 08:00] VITALS: BP 115/75
[2018-04-19 08:43] LABS: BAND % (MANUAL) 4 % (0.0-5.0); LYMPHOCYTES % (MANUAL) 2 % (16-48); MONOCYTES % (MANUAL) 4 % (0-11.0); NEUTROPHILS % (MANUAL) 90 (42-76)
--- NOTE | 2018-04-19 09:30 | NUR ---
Received patient awake and alert, oriented x's 4. Patient with at bedside, updated, and given privacy to visit. Marcial Love RN
[2018-04-19] MEDS: ASPIRIN EC 81 MG TABLET.DR PO SCH (10:03)
[2018-04-19] MEDS: DOCUSATE SODIUM 100 MG CAPSULE PO SCH (10:03)
[2018-04-19] MEDS: SERTRALINE HCL 25 MG TABLET PO SCH (10:04)
[2018-04-19] MEDS: PANTOPRAZOLE 40 MG TABLET.DR PO SCH (10:13)
--- NOTE | 2018-04-19 13:30 | NUR ---
Patient had soft bm, cleaned and partial linen change. Patient does void in urinal. He is very weak, especially the lower extremities. Marcial Love RN
[2018-04-19] MEDS ORDERED: FEE PK DOSING 1 MIN EA MC ONE (14:27)
[2018-04-19] MEDS ORDERED: NS 0.9% IV SCH (15:00)
[2018-04-19] MEDS ORDERED: AMIKACIN IV SCH (15:00)
[2018-04-19 15:29] LABS: ABG BASE EXCESS 13.6 mmol/L; ABG OXYGEN SATURATION 96.4 % (92.0-98.5); ABG PCO2 64.1 mmHg (35.0-45.0); ABG PH 7.419 (7.350-7.450); ABG PO2 95.9 mmHg (75.0-100.0); AaDO2 71.8 mmHg; COHb 0.3 % (0.5-1.5); MetHb 0.5 % (0.0-1.5); O2Hb 95.6 % (94.0-97.0); SITE, ABG Left Brachial; VENT MODE, BG Nasal Cannula
[2018-04-19 16:00] VITALS: BP 137/80
--- NOTE | 2018-04-19 17:00 | NUR ---
Patient remains on 02 4 liters, earlier I did attempt to decrease to 02 to 2 liters, however the complained to the RT, and 02 back to 4 liters nc. Marcial Love RN
[2018-04-19 20:00] VITALS: BP 121/87
[2018-04-19] MEDS: ACETAMINOPHEN 325 MG TABLET PO PRN (20:49)
[2018-04-19] MEDS: ENOXAPARIN SODIUM 30 MG/0.3 ML DISP.SYRIN SQ SCH (20:50)
[2018-04-19] MEDS: ATORVASTATIN 40 MG TABLET PO SCH (21:08)
[2018-04-19] MEDS: TEMAZEPAM 7.5 MG CAPSULE PO PRN (21:08)
[2018-04-20] MEDS: ALBUTEROL FS 2.5 MG/3 ML VIAL.NEB NEB SCH ×6 (03:26→23:21)
[2018-04-20] MEDS: IPRATROPIUM NEB FS 0.5 MG/2.5 ML AMPUL.NEB NEB SCH ×6 (03:26→23:21)
[2018-04-20 04:00] VITALS: BP 130/92
[2018-04-20] MEDS: methylPREDNISolone SOD SUCC 125 MG/2ML VIAL IV SCH ×3 (05:33→21:18)
[2018-04-20 06:30] LABS: HEMATOCRIT 33 % (39-51); HEMOGLOBIN 10.4 g/dL (13.5-17.5); LYMPHOCYTES # (AUTO) 0.7 /CMM (0.8-4.8); LYMPHOCYTES % (AUTO) 2.8 % (20.0-44.0); MEAN CORPUSCULAR HEMOGLOBIN 31 PG (26.0-33.0); MEAN CORPUSCULAR HGB CONC 32 g/dl (31.0-36.0); MEAN CORPUSCULAR VOLUME 98 fL (80-96); MONOCYTES # (AUTO) 0.1 /CMM (0.1-1.30); MONOCYTES % (AUTO) 0.3 % (2.0-12.0); NEUTROPHILS # (AUTO) 25.1 /CMM (1.8-8.9); NEUTROPHILS % (AUTO) 96.9 % (43.0-81.0); PLATELET COUNT (AUTO) 327 /CMM (150-450); RDW COEFFICIENT OF VARIATION 16.6 (11.5-15.0); RED BLOOD CELL COUNT(AUTO) 3.36 MIL/uL (4.5-6.0); WHITE BLOOD COUNT (AUTO) 25.9 K/uL (4.3-11.0)
[2018-04-20 07:07] LABS: CREATININE 0.6 mg/dL (0.6-1.3); MAGNESIUM 1.8 mg/dL (1.8-2.4); PHOSPHORUS 2.7 mg/dL (2.5-4.9); POTASSIUM 3.8 mmol/L (3.5-5.1)
--- NOTE | 2018-04-20 07:33 | NUR ---
BIANCA RN OPENING NOTES RECEIVED PATIENT ASLEEP IN BED, EASILY AWAKENS. ON 02 VIA N/C @ 4LPM, BREATHING EVEN & UNLABORED WITH NO SIGNS OF RESPIRATORY DISTRESS NOTED. LEFT WRIST IV G#20 & RIGHT FOREARM IV G#18 INTACT & PATENT W/ DRESSING C/D/I. SKIN WARM TO TOUCH. SAFETY MEASURES IN PLACE. BED IN LOW/LOCKED POSITION WITH SIDE-RAILS UP X2. BED ALARM ON & CALL LIGHT WITHIN REACH. INSTRUCTED TO CALL FOR ASSISTANCE. WILL CONTINUE TO MONITOR ACCORDINGLY.
[2018-04-20] MEDS: PANTOPRAZOLE 40 MG TABLET.DR PO SCH (07:48)
[2018-04-20 08:00] VITALS: BP 131/88
[2018-04-20] MEDS: ASPIRIN EC 81 MG TABLET.DR PO SCH (08:24)
[2018-04-20] MEDS: SERTRALINE HCL 25 MG TABLET PO SCH (08:24)
[2018-04-20] MEDS: DOCUSATE SODIUM 100 MG CAPSULE PO SCH (08:24)
--- NOTE | 2018-04-20 08:28 | NUR ---
RN NOTES PROGRAM ASSOCIATE TIMA MADE AWARE OF PATIENT'S ELEVATED BLOOD CO2 41. NO NEW ORDERS MADE. WILL CONTINUE TO MONITOR
[2018-04-20 10:06] LABS: LYMPHOCYTES % (MANUAL) 1 % (16-48); MONOCYTES % (MANUAL) 4 % (0-11.0); NEUTROPHILS % (MANUAL) 95 (42-76)
--- NOTE | 2018-04-20 10:58 | NUR ---
RN NOTES TRIED PATIENT TO CHECK SP02 WHEN ON ROOM AIR BUT PT DESATURATED TO 86-88% AND C/O SOB. PLACED BACK PT ON 02 VIA N/C AT 4LPM AND SP02 WENT-UP TO 98-99%. WILL CONTINUE TO MONITOR.
--- NOTE | 2018-04-20 15:00 | NUR ---
RN NOTES IV ACCESS ON RIGHT WRIST NOTED LEAKING, AT BEDSIDE AND REQUESTED TO HAVE IT REMOVED. REMOVED IV LINE WITH MINIMAL BLEEDING NOTED. PRESSURE GAUZE APPLIED, TAPED AND ELEVATED WITH PILLOW. WILL CONTINUE TO MONITOR.
[2018-04-20 16:00] VITALS: BP 140/90
--- NOTE | 2018-04-20 18:44 | NUR ---
BIANCA RN CLOSING NOTES PATIENT AWAKE AND RESTING COMFORTABLY IN BED. A/O X3. ABLE TO MAKE NEEDS KNOWN. NO C/O PAIN ALL THROUGHOUT THE DAY. ON 02 VIA N/C @ 3LPM AT THIS TIME, BREATHING EVEN AND UNLABORED WITH NO SIGNS OF RESPIRATORY DISTRESS NOTED. IV ACCESS ON RIGHT FOREARM G#18 INTACT & PATENT, FLUSHES WELL. ALL SAFETY MEASURES KEPT IN PLACE. BED IN LOW/LOCKED POSITION WITH SIDE-RAILS UP X2. BED ALARM ON & CALL LIGHT WITHIN REACH. INSTRUCTED TO CALL FOR ASSISTANCE. TURNED AND REPOSITIONED Q 2HRS AND PRN. ALL NEEDS AND CARE ATTENDED WELL. WILL ENDORSE TO PHOTO CARTOGRAPHER NURSE FOR JESUS.
--- NOTE | 2018-04-20 19:50 | NUR ---
RN MS INITIAL NOTES PATIENT AWAKE AND RESTING COMFORTABLY IN BED. A/O X3, FAMILY BY BEDSIDE. ABLE TO MAKE NEEDS KNOWN. DENIES ANY PAIN . ON 02 VIA N/C @ 3LPM AT THIS TIME, BREATHING EVEN AND UNLABORED WITH NO SIGNS OF RESPIRATORY DISTRESS NOTED. IV ACCESS ON RIGHT FOREARM G#18 INTACT & PATENT, FLUSHES WELL. ALL SAFETY MEASURES KEPT IN PLACE
[2018-04-20 20:00] VITALS: BP 117/81
[2018-04-20] MEDS: TEMAZEPAM 7.5 MG CAPSULE PO PRN (21:18)
[2018-04-20] MEDS: ATORVASTATIN 40 MG TABLET PO SCH (21:18)
[2018-04-20] MEDS: ENOXAPARIN SODIUM 30 MG/0.3 ML DISP.SYRIN SQ SCH (21:21)
[2018-04-21] VITALS: BP 117/81
[2018-04-21] MEDS: IPRATROPIUM NEB FS 0.5 MG/2.5 ML AMPUL.NEB NEB SCH ×6 (03:24→23:06)
[2018-04-21] MEDS: ALBUTEROL FS 2.5 MG/3 ML VIAL.NEB NEB SCH ×6 (03:24→23:06)
[2018-04-21] MEDS ORDERED: AMIKACIN 1,000 MG in IV D5W 100 ML IV SCH (06:00)
--- NOTE | 2018-04-21 06:00 | NUR ---
AMIKACIN 1000MG IV NOT ABLE TO GIVE TROUGH 17.5 NOT IN CASSET, SPOKE TO GIO CAMPOS SUGGESTED NOT TO GIVE, THEN CALLED BACK AT 0730 AND SUGGESTED TO GIVE . ENDORSED TO AM RN TO F/U WITH MED BEFORE DOSE IS GIVEN. SOON CHARGE AWARE.
[2018-04-21] MEDS: methylPREDNISolone SOD SUCC 125 MG/2ML VIAL IV SCH ×3 (06:03→21:01)
[2018-04-21 06:39] LABS: HEMATOCRIT 35 % (39-51); HEMOGLOBIN 11.2 g/dL (13.5-17.5); LYMPHOCYTES # (AUTO) 0.7 /CMM (0.8-4.8); LYMPHOCYTES % (AUTO) 3.2 % (20.0-44.0); MEAN CORPUSCULAR HEMOGLOBIN 31 PG (26.0-33.0); MEAN CORPUSCULAR HGB CONC 32 g/dl (31.0-36.0); MEAN CORPUSCULAR VOLUME 98 fL (80-96); MONOCYTES # (AUTO) 0.4 /CMM (0.1-1.30); MONOCYTES % (AUTO) 2.1 % (2.0-12.0); NEUTROPHILS # (AUTO) 19.6 /CMM (1.8-8.9); NEUTROPHILS % (AUTO) 94.7 % (43.0-81.0); PLATELET COUNT (AUTO) 380 /CMM (150-450); RED BLOOD CELL COUNT(AUTO) 3.56 MIL/uL (4.5-6.0); WHITE BLOOD COUNT (AUTO) 20.7 K/uL (4.3-11.0)
--- NOTE | 2018-04-21 06:39 | NUR ---
RN MS CLOSING NOTES PATIENT AWAKE AND RESTING COMFORTABLY IN BED. A/O X3, FAMILY BY BEDSIDE. ABLE TO MAKE NEEDS KNOWN. DENIES ANY PAIN . ON 02 VIA N/C @ 3LPM AT THIS TIME, BREATHING EVEN AND UNLABORED WITH NO SIGNS OF RESPIRATORY DISTRESS NOTED. IV ACCESS ON RIGHT FOREARM G#18 INTACT & PATENT, FLUSHES WELL. ALL SAFETY MEASURES KEPT IN PLACE. WILL ENDORSE TO AM RN TO HOLD COLACE.
[2018-04-21 07:09] LABS: CALCIUM, SERUM 8.2 mg/dL (8.5-10.1); CREATININE 0.5 mg/dL (0.6-1.3); POTASSIUM 4.5 mmol/L (3.5-5.1)
--- NOTE | 2018-04-21 07:30 | NUR ---
RN NOTES RECEIVED PATIENT IN BED ALERT, AWAKE, ORIENTED X3 WITH BREATHING NORMAL, EVEN AND UNLABORED. NO SOB NOTED. NO ACUTE DISTRESS NOTED. ON 4L O2 VIA NC. TOLERATING WELL. IV IS PATENT AND INTACT. KEPT CLEAN, DRY AND COMFORTABLE. ALL NEEDS ATTENDED. CALL LIGHT WITH IN REACH. SAFETY MEASURE OBSERVED. WILL CONT TO MONITOR.
[2018-04-21 08:00] VITALS: BP 151/95
--- NOTE | 2018-04-21 08:08 | NUR ---
RN NOTES AMIKACIN ORDER CLARIFY WITH GIO PHARMACIST. PER GIO, AMIKACIN DOSE IS ALREADY ADJUSTED ACCORDING TO TROUGH LEVEL RESULTS SO ITS OK TO GIVEN AMIKACIN DOSE. CHARGE NURSE SOON AWARE.
--- NOTE | 2018-04-21 08:24 | NUR ---
RT CALLED TO BEDSIDE TO ASSES PT. PT COACHED TO DEEP BREATHING. HEAD OF BED ELEVATED SPO2 AT 96% PT CONGESTED AND OFFERED HHN AND NTS AT THIS TIME WAS DECLINED. WILL CONTINUE TO MONITOR. PT ON CONT. PULSE -OX
[2018-04-21] MEDS: LORAZEPAM 0.5 MG TABLET PO PRN (08:52)
[2018-04-21] MEDS: DOCUSATE SODIUM 100 MG CAPSULE PO SCH (08:52)
[2018-04-21] MEDS: ASPIRIN EC 81 MG TABLET.DR PO SCH (08:52)
[2018-04-21] MEDS: SERTRALINE HCL 25 MG TABLET PO SCH (08:52)
[2018-04-21] MEDS: PANTOPRAZOLE 40 MG TABLET.DR PO SCH (08:52)
[2018-04-21 09:42] LABS: BAND % (MANUAL) 2 % (0.0-5.0); LYMPHOCYTES % (MANUAL) 6 % (16-48); MONOCYTES % (MANUAL) 3 % (0-11.0); NEUTROPHILS % (MANUAL) 89 (42-76)
[2018-04-21] MEDS: AMIKACIN 1,000 MG in IV D5W 100 ML IV SCH (10:29)
--- NOTE | 2018-04-21 15:39 | NUR ---
RT PT AND PT FAMILY REQUEST FOR ALBUTEROL BE GIVEN ONLY Q12 @ 0730 AND 1930. Addendum: 04/21/18 at 1540 by FREDO ANGULO RT Amended: Links added.
[2018-04-21 16:00] VITALS: BP 141/82
--- NOTE | 2018-04-21 18:59 | NUR ---
RN NOTES PATIENT ENDORSED TO NEXT SHIFT IN STABLE CONDITION FOR CONTINUITY OF CARE. WILL CONT TO MONITOR.
[2018-04-21] MEDS: TEMAZEPAM 7.5 MG CAPSULE PO PRN (21:02)
[2018-04-21] MEDS: ATORVASTATIN 40 MG TABLET PO SCH (21:02)
[2018-04-21] MEDS: ENOXAPARIN SODIUM 30 MG/0.3 ML DISP.SYRIN SQ SCH (21:17)
[2018-04-22] VITALS: BP 132/79
[2018-04-22] MEDS: IPRATROPIUM NEB FS 0.5 MG/2.5 ML AMPUL.NEB NEB SCH ×6 (03:30→23:14)
[2018-04-22] MEDS: ALBUTEROL FS 2.5 MG/3 ML VIAL.NEB NEB SCH ×6 (03:30→23:14)
[2018-04-22] MEDS: methylPREDNISolone SOD SUCC 125 MG/2ML VIAL IV SCH ×3 (05:06→21:29)
[2018-04-22 07:06] LABS: HEMATOCRIT 33 % (39-51); HEMOGLOBIN 10.4 g/dL (13.5-17.5); LYMPHOCYTES # (AUTO) 0.5 /CMM (0.8-4.8); LYMPHOCYTES % (AUTO) 3.6 % (20.0-44.0); MEAN CORPUSCULAR HEMOGLOBIN 31 PG (26.0-33.0); MEAN CORPUSCULAR HGB CONC 31 g/dl (31.0-36.0); MEAN CORPUSCULAR VOLUME 97 fL (80-96); MONOCYTES # (AUTO) 0.2 /CMM (0.1-1.30); MONOCYTES % (AUTO) 1.4 % (2.0-12.0); NEUTROPHILS # (AUTO) 13.4 /CMM (1.8-8.9); PLATELET COUNT (AUTO) 330 /CMM (150-450); RDW COEFFICIENT OF VARIATION 16.8 (11.5-15.0); RED BLOOD CELL COUNT(AUTO) 3.41 MIL/uL (4.5-6.0); WHITE BLOOD COUNT (AUTO) 14.1 K/uL (4.3-11.0)
--- NOTE | 2018-04-22 07:20 | NUR ---
RN NOTES PT IS LAYING DOWN IN BED, RESTING COMFORTABLY. PT ON 4L O2, RESPIRATIONS ARE EVEN AND LABORED. IV ON RFA AND L WRIST INTACT AND SL. NO SIGNS OF DISTRESS NOTED. SAFETY MEASURES ARE IN PLACE, CALL LIGHT IS IN REACH. WILL CONTINUE TO MONITOR.
[2018-04-22 07:31] LABS: CALCIUM, SERUM 7.6 mg/dL (8.5-10.1); CREATININE 0.5 mg/dL (0.6-1.3); POTASSIUM 4.2 mmol/L (3.5-5.1)
[2018-04-22 08:00] VITALS: BP 125/89
[2018-04-22] MEDS: SERTRALINE HCL 25 MG TABLET PO SCH (08:35)
[2018-04-22] MEDS: ASPIRIN EC 81 MG TABLET.DR PO SCH (08:35)
[2018-04-22] MEDS: DOCUSATE SODIUM 100 MG CAPSULE PO SCH (08:35)
[2018-04-22] MEDS: PANTOPRAZOLE 40 MG TABLET.DR PO SCH (08:35)
[2018-04-22 09:08] LABS: BAND % (MANUAL) 14 % (0.0-5.0); LYMPHOCYTES % (MANUAL) 3 % (16-48); MONOCYTES % (MANUAL) 3 % (0-11.0); NEUTROPHILS % (MANUAL) 80 (42-76)
[2018-04-22] MEDS: ACETAMINOPHEN 325 MG TABLET PO PRN (11:10)
[2018-04-22 16:00] VITALS: BP 137/85
--- NOTE | 2018-04-22 18:33 | NUR ---
RN NOTES PT IS LAYING DOWN IN BED WITH AT BEDSIDE. PT ON 4L O2, RESPIRATIONS ARE EVEN, O2 SAT 96%. IV ON RFA INTACT AND SL. ALL MEDS WERE GIVEN ORDERED AND PT NEEDS MET. NO SIGNS OF DISTRESS NOTED. SAFETY MEASURES ARE IN PLACE, CALL LIGHT IS IN REACH. WILL ENDORSE TO NIGHT ORDER SELECTOR RN FOR CONTINUITY OF CARE.
[2018-04-22 20:00] VITALS: BP 141/85
--- NOTE | 2018-04-22 20:00 | NUR ---
RN OPENING NOTES PT IS LAYING DOWN IN BED WITH AT BEDSIDE. PT IS A/O X3, ON 4L O2, RESPIRATIONS ARE EVEN, O2 SAT 99%. IV ON RFA INTACT AND PATIENT. NO SIGNS OF DISTRESS NOTED AT THIS TIME. SAFETY MEASURES ARE IN PLACE, CALL LIGHT IS IN REACH. WILL CONT. TO MONITOR.
--- NOTE | 2018-04-22 20:47 | NUR ---
RN NOTES PATIENT HAS AMIKIN IV 208ML/HR AT 2200 AND AMIKACIN THROUGH IS 17.3. VERIFIED WITH THE PHARMACY AUTOGLAZIER MODE AND SHE SAID THAT IT'S OK TO ADMINISTER THIS MEDICATION TO THIS PATIENT.
[2018-04-22] MEDS: ATORVASTATIN 40 MG TABLET PO SCH (21:27)
[2018-04-22] MEDS: ENOXAPARIN SODIUM 30 MG/0.3 ML DISP.SYRIN SQ SCH (21:28)
[2018-04-22] MEDS: TEMAZEPAM 7.5 MG CAPSULE PO PRN (21:29)
[2018-04-22] MEDS: AMIKACIN 1,000 MG in IV D5W 100 ML IV SCH (21:30)
[2018-04-23] VITALS (46 sets, daily range): BP systolic 35–158; BP diastolic 21–97
--- NOTE | 2018-04-23 | NUR ---
RN NOTES PATIENT HAS SOB, SPO2 IS 93 ON NC 4LO2 AND HAS BEEN INCREASED TO 5L NC HUMIDIFIED O2 AND SPO2 INCREASED TO 96%.MD VIKKI NELSON NOTIFIED ABOUT CRITICAL VALUES OF STAT ABG.CHEST X-RAY STAT ORDERED. NO NEW ORDERS FOR NOW AND MD VIKKI NELSON SAID THAT HE WILL BE HERE SOON TO SEE THE PATIENT.
[2018-04-23 00:59] LABS: ABG BASE EXCESS 19.3 mmol/L; ABG OXYGEN SATURATION 90.8 % (92.0-98.5); ABG PCO2 74.5 mmHg (35.0-45.0); ABG PO2 62.7 mmHg (75.0-100.0); AaDO2 173.4 mmHg; MetHb 0.6 % (0.0-1.5); O2Hb 90.3 % (94.0-97.0); SITE, ABG Right Brachial
--- NOTE | 2018-04-23 02:00 | NUR ---
RN NOTES JANIS NELSON IS AT BEDSIDE, SOME CONGESTION NOTED , PER DNP LESLIE NEW ORDERS WILL BE IN PLACE.
[2018-04-23] MEDS ORDERED: ALBUTEROL FS 2.5 MG/3 ML VIAL.NEB NEB ONE (02:30)
[2018-04-23] MEDS ORDERED: FUROSEMIDE 40 MG/4 ML VIAL IV ONE (02:30)
[2018-04-23] MEDS ORDERED: IPRATROPIUM NEB FS 0.5 MG/2.5 ML AMPUL.NEB NEB ONE (02:30)
[2018-04-23] MEDS: ALBUTEROL FS 2.5 MG/3 ML VIAL.NEB NEB SCH ×5 (03:25→19:59)
[2018-04-23] MEDS: IPRATROPIUM NEB FS 0.5 MG/2.5 ML AMPUL.NEB NEB SCH ×5 (03:25→19:59)
[2018-04-23] MEDS: methylPREDNISolone SOD SUCC 125 MG/2ML VIAL IV SCH ×3 (05:19→20:29)
--- NOTE | 2018-04-23 06:00 | NUR ---
RN CLOSING NOTES PATIENT IS IN BED, A/OX3, WITH SPO2 OF 94% ON NC 5L HUMIDIFIED O2. PATIENT COMPLAINS OF NOT BEING ABLE TO CATCH HIS BREATH. PATIENT IS LAYING FLAT IN BED, REFUSING HOB TO BE ELEVATED. RECEIVED A CALL FROM LAB ABOUT CRITICAL VALUE BLOOD CO2 IS 42, VIKKI NELSON IS NOTIFIED AND IT WILL BE ENDORSED TO AM NURSE. ALL SAFETY MEASURES ARE IMPLEMENTED, ALL NEEDS ARE ATTENDED. 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
[2018-04-23 06:25] LABS: HEMATOCRIT 35 % (39-51); HEMOGLOBIN 11.1 g/dL (13.5-17.5); LYMPHOCYTES # (AUTO) 0.6 /CMM (0.8-4.8); LYMPHOCYTES % (AUTO) 3.6 % (20.0-44.0); MEAN CORPUSCULAR HEMOGLOBIN 31 PG (26.0-33.0); MEAN CORPUSCULAR HGB CONC 32 g/dl (31.0-36.0); MEAN CORPUSCULAR VOLUME 97 fL (80-96); MONOCYTES # (AUTO) 0.2 /CMM (0.1-1.30); MONOCYTES % (AUTO) 1.2 % (2.0-12.0); NEUTROPHILS # (AUTO) 14.8 /CMM (1.8-8.9); NEUTROPHILS % (AUTO) 95.2 % (43.0-81.0); PLATELET COUNT (AUTO) 342 /CMM (150-450); RDW COEFFICIENT OF VARIATION 16.4 (11.5-15.0); RED BLOOD CELL COUNT(AUTO) 3.62 MIL/uL (4.5-6.0); WHITE BLOOD COUNT (AUTO) 15.6 K/uL (4.3-11.0)
[2018-04-23 06:38] LABS: CALCIUM, SERUM 8.3 mg/dL (8.5-10.1); CREATININE 0.5 mg/dL (0.6-1.3); POTASSIUM 3.6 mmol/L (3.5-5.1)
--- NOTE | 2018-04-23 06:54 | NUR ---
RT HHN TX GIVEN. PATIENT CONGESTED WITH WEAK COUGH. PATIENT AWAKE AND ALERT. RT WANTED TO NT SUCTION PATIENT. PATIENT VERBALLY REFUSED SAYING HE DID NOT WANT THAT.
--- NOTE | 2018-04-23 07:30 | NUR ---
PAINTER SUPERVISOR INITIAL NOTES RECEIVED PATIENT LAYING FLAT IN BED, AOX3, ON NASAL CANNULA 5L 95% O2 SATURATING, NO SHORTNESS OF BREATH NOTED, IV R FA 18G, CLEAN AND PATENT, BED IN LOW AND LOCKED POSITION, CALL LIGHT WITHIN REACH, WILL CONTINUE TO MONITOR.
[2018-04-23] MEDS: DOCUSATE SODIUM 100 MG CAPSULE PO SCH (08:31)
[2018-04-23] MEDS: ASPIRIN EC 81 MG TABLET.DR PO SCH (08:31)
[2018-04-23] MEDS: SERTRALINE HCL 25 MG TABLET PO SCH (08:31)
[2018-04-23] MEDS: PANTOPRAZOLE 40 MG TABLET.DR PO SCH (08:32)
[2018-04-23] MEDS ORDERED: acetaZOLAMIDE 250 MG TABLET PO SCH (11:00)
--- NOTE | 2018-04-23 15:09 | NUR ---
RT HHN TX NOT GIVEN TO TO ELEVATED HR. WAS FEEDING PATIENT WHEN HE BECAME DISTRESSED. RT PLACED PATIENT ON NRB MASK AND NT SUCTIONED PATIENT WITH LARGE AMT OF PARSONS SEMITHICK SECRETIONS. B/S COARSE RHONCHI PRIOR TO SUCTION, DIM POST SUCTION. PATIENT HAS WEAK WET COUGH. WILL TITRATE FIO2 WHEN PATIENT RECOVERS FROM SOB EPISODE.
--- NOTE | 2018-04-23 15:15 | NUR ---
METALIZING SUPERVISOR NOTES PATIENT HR RATE NOTED TO BE HIGH IN THE 103S, DR JACKSON NOTIFIED, EKG STAT ORDERED.
--- NOTE | 2018-04-23 15:35 | NUR ---
GLOBAL LOGISTICS MANAGER NOTES PATIENT IS SEEN BY DR THRASHER AND ARASELI HOFF TO TRANSFER TO ICU, DR JACKSON MADE AWARE.
--- NOTE | 2018-04-23 15:55 | NUR ---
CALIBRATOR BAROMETERS NOTES PATIENT TRANSFERRED TO ICU RM 259 REPORT GIVEN TO ADJUNCT PROFESSOR OF ENGLISH ZEKE. PATIENTS AT BEDSIDE AND AWARE. ALL BELONGINGS BROUGHT WITH PATIENT AND .
--- NOTE | 2018-04-23 16:55 | NUR ---
patient transfered to icu due to increased respiratory distress. dr maya and dr mcbride aware. per md start patient on bipap; rt aware and given orders by md and please obtain abg in 1 hour of bipap. patient tachycardic and tachypneic. visual sob and lethargic. iv site c/d/i/p. rt at bedside. at bedside. patient able to follow commands. diapered. positioned for increased ease of breathing. aspiration, skin, isolation and safety precautions monitored
[2018-04-23] MEDS ORDERED: ACETYLCYSTEINE 10% SOLN 400 MG/4 ML VIAL NEB SCH (17:00)
[2018-04-23 17:41] LABS: ABG BASE EXCESS 17.9 mmol/L; ABG OXYGEN SATURATION 91.7 % (92.0-98.5); ABG PCO2 102.1 mmHg (35.0-45.0); ABG PO2 74.5 mmHg (75.0-100.0); AaDO2 536.4 mmHg; COHb 0.2 % (0.5-1.5); MetHb 0.5 % (0.0-1.5); O2Hb 91.1 % (94.0-97.0); SITE, ABG Right Radial
--- NOTE | 2018-04-23 18:00 | NUR ---
[address] maya of patient abg and per md bipap change 25/5 and check abg in at 8pm- in 2 hours; if patient still in distress please intubate with er [address] maya patient is hypotensive with respiratory distress. per dr maya 500ns bolus and intubate with er md. if still hypotensive start levo per protocol to keep sbp over 90
--- NOTE | 2018-04-23 18:00 | NUR ---
1745 notified md of patient abg and per md update bipap changes 25/5 and recheck abg in 2 hours; if patient still in distress please intubate patient. 1800 notified md patient is hypotensive sbp 80's and continues respiratory distress. per md give 500ns bolus and intubate. called er md to notify. if still hypotensive start levo per protocol to keep sbp over 90
--- NOTE | 2018-04-23 18:26 | NUR ---
RT PATIENT IN DISTRESS ORALLY INTUBATED WITH A 7.5 ETT SECURED AT 21CM TOP LIP VIA ANCHOR FAST. POSITIVE CO2 DETECTOR COLOR CHANGE NOTED. BILAT BREATH SOUNDS HEARD. CHEST RISE NOTED. PLACED ON [facility] VENT WITH SETTINGS GIVEN BY ER DOCTOR: AC 18, 400, 100% +0. VENT ALARMS CHECKED + AUDIBLE. CUFF PRESSURE CHECKED VEGETABLE FARM MANAGER. AMBU BAG AT HOB. Addendum: 04/23/18 at 1828 by SAVANNAH CARLOS RT Amended: Links added.
[2018-04-23] MEDS ORDERED: NOREPINEPHRINE 8 MG in IV D5W 500 ML IV PRN (18:30)
[2018-04-23] MEDS ORDERED: PROPOFOL 100 ML IV PRN (18:30)
[2018-04-23] MEDS ORDERED: IV NS 0.9% 500 ML IV ONE ×5 (18:30→19:00)
[2018-04-23] MEDS: PHENYLEPHRINE 80 MG in IV D5W 250 ML IV PRN ×3 (18:44→23:05)
--- NOTE | 2018-04-23 18:45 | NUR ---
per md please advance ett 5cm; rt aware. dr maya aware of patient heart rate 140's-150's ok to have alessandra ordered for pressure support. order x5 more 500ns bolus to total 1500ml ns. alessandra started per protocol.
--- NOTE | 2018-04-23 18:48 | NUR ---
LIGHT AIR DEFENSE ARTILLERY CREWMEMBER NOTES SPOKE WITH DR THRASHER , DISCUSSED PT S/P INTUBATION , ETT TO BE ADJUSTED 5CM IN, BP OF 70'S , STEPHANIE STARTED , 2ND BAG OF 500ML NS BOLUS STILL ONGOING , PER MD GIVE ANOTHER 500ML OF NS , ORDERS CARRIED OUT
[2018-04-23] MEDS ORDERED: ROCURONIUM BROMIDE 100 MG/10 ML VIAL IV ONE (18:55)
[2018-04-23] MEDS ORDERED: ETOMIDATE 2 MG/ML VIAL IV ONE (18:55)
--- NOTE | 2018-04-23 18:55 | NUR ---
7.5 ETT AT 21CM AT THE LIP. ETT ADJUSTED, PUSHED 5CM. TUBE IS NOW AT 26CM AT THE LIP. RN NOTIFIED.
--- NOTE | 2018-04-23 19:00 | NUR ---
pending picc line placement s/p pressors. patient tolerating vent 100%. bp stable at this time titrating down alessandra per order; please see spreadsheet. patient completing last 500ns bolus to complete 1500ml. called and updated on patient condition. care endorsed to rn for favian. safety, skin, aspiration, and isolation precautions in place.
--- NOTE | 2018-04-23 20:00 | NUR ---
SUPERVISOR DOG LICENSE OFFICER - NOTES - RECEIVED PT IN BED, INTUBATED OBTUNDED, NOT FOLLOWING COMMANDS. PT IS ON 100% FIO2 ON VENT, STILL SATTING LOW 90S. PT IS ON STEPHANIE AT 40 MCG, WILL TITRATE TO KEEP MAP OVER 65. PT HAS NO NGT, PTS ANATOMY MAKES INSERTING THE NGT VERY DIFFICULT. PT HAS A DIAPER FOR VOIDING. AND PT HAS A RIGHT FOREARM IV. WILL CONTINUE TO MONITOR
--- NOTE | 2018-04-23 20:25 | NUR ---
RECEIVED PT ORALLY INTUBATED 7.5 ETT SECURED AT 26CM AT THE LIP. PT TOLERATING VENT SETTINGS. B/S COARSE BILAT. SX'D FOR MOD AMT OF THICK YELLOW SECRETIONS. VENT ALARMS SET AND AUDIBLE. AMBU BAG AT BEDSIDE. VENT PLUGGED INTO RED OUTLET. WILL CONTINUE TO MONITOR. Addendum: 04/23/18 at 2026 by BHARATI CROWE RT Amended: Links added.
[2018-04-23] MEDS: ENOXAPARIN SODIUM 30 MG/0.3 ML DISP.SYRIN SQ SCH (20:31)
--- NOTE | 2018-04-23 21:20 | NUR ---
RONNA TRIPLE LUMEN PICC LINE INSERTED AT 39 CM DEPTH. PLACEMENT VERIFIED , GOOD BLOOD RETURN, CDI
[2018-04-23] MEDS ORDERED: PHENYLEPHRINE 10 MG/ML VIAL ONE ×2 (21:25→22:56)
[2018-04-23 21:55] LABS: ABG OXYGEN SATURATION 78.5 % (92.0-98.5); ABG PCO2 85.6 mmHg (35.0-45.0); ABG PH 7.243 (7.350-7.450); AaDO2 576.4 mmHg; COHb 0.1 % (0.5-1.5); MetHb 0.5 % (0.0-1.5); PEEP,BG 5 cm H2O; SITE, ABG Right Radial
--- NOTE | 2018-04-23 21:57 | NUR ---
ABG DONE. RN NOTIFIED WITH THE RESULT.
[2018-04-23] MEDS ORDERED: DOBUTamine 12.5 MG/ML VIAL IV ONE ×2 (22:20→22:32)
--- NOTE | 2018-04-23 22:22 | NUR ---
RATE CHANGED TO 20, VT CHANGED TO [address] MENDIETA. WILL CONTINUE TO MONITOR.
[2018-04-23] MEDS ORDERED: DoBUTamine 500 MG/250 ML PIGGYBACK IV ONE (22:30)
--- NOTE | 2018-04-23 23:15 | NUR ---
PT NOT RESPONDING TO PRESSORS, FINANCIAL SYSTEMS ANALYST VIKKI NELSON NOTIFIED, WILL INPUT NEW ORDERS
--- NOTE | 2018-04-23 23:20 | NUR ---
BLOOD PRESSURE IS CONTINUING TO DROP, PT NOT RESPONDING TO PRESSORS OR VENT, WILL TITRATE LEVOPHED TO TRY TO INCREASE BP
--- NOTE | 2018-04-24 00:05 | NUR ---
PT DECIDED TO MAKE PT DNR AND UNDERSTANDS POOR PROGNOSIS. NO CODE CALLED, HR SLOWED DOWN TO 30S THEN WENT ASYSTOLE, NO PULSE. PT PRONOUNCED BY VIKKI NELSON
[2018-04-24 00:10] VITALS: BP 0/0
--- NOTE | 2018-04-24 00:50 | NUR ---
@0014 PT . Addendum: 04/24/18 at 0051 by BHARATI CROWE RT Amended: Links added.
== END 2018-04-24 00:14 | disposition expired | DRG 208 ==
LOC: ER 13:37 → ICU 17:22 → TELE-TD 04-18 18:14 → MEDSG1 04-19 10:58 → ICU 04-23 16:43
PROVIDERS: ADMIT Nurse Practitioner Acute Care; ATTEND Nurse Practitioner Acute Care
PROC: 5A1935Z Respiratory Ventilation, Less than 24 Consecutive Hours (ICD-10-PCS; principal; 2018-04-23)
PROC: 0BH17EZ Insertion of Endotracheal Airway into Trachea, Via Natural or Artificial Opening (ICD-10-PCS; 2018-04-23)
PROC: 02HV33Z Insertion of Infusion Device into Superior Vena Cava, Percutaneous Approach (ICD-10-PCS; 2018-04-23)
PROC: B548ZZA Ultrasonography of Superior Vena Cava, Guidance (ICD-10-PCS; 2018-04-23)
PROC: 5A09357 Assistance with Respiratory Ventilation, Less than 24 Consecutive Hours, Continuous Positive Airway Pressure (ICD-10-PCS; 2018-04-23)
DX: J96.01 Acute respiratory failure with hypoxia (principal); E43 Unspecified severe protein-calorie malnutrition; J18.9 Pneumonia, unspecified organism; N17.0 Acute kidney failure with tubular necrosis; J90 Pleural effusion, not elsewhere classified; I50.32 Chronic diastolic (congestive) heart failure; C34.90 Malignant neoplasm of unspecified part of unspecified bronchus or lung; E87.3 Alkalosis; J96.02 Acute respiratory failure with hypercapnia; I48.91 Unspecified atrial fibrillation; Z90.2 Acquired absence of lung [part of]; Z95.5 Presence of coronary angioplasty implant and graft; E03.9 Hypothyroidism, unspecified; E78.5 Hyperlipidemia, unspecified; E87.6 Hypokalemia; Z79.4 Long term (current) use of insulin; Z79.82 Long term (current) use of aspirin; Z79.01 Long term (current) use of anticoagulants; Z79.899 Other long term (current) drug therapy; Z87.891 Personal history of nicotine dependence; I25.10 Atherosclerotic heart disease of native coronary artery without angina pectoris; Z79.52 Long term (current) use of systemic steroids; Z66 Do not resuscitate; I11.0 Hypertensive heart disease with heart failure; F32.9 Major depressive disorder, single episode, unspecified; D63.8 Anemia in other chronic diseases classified elsewhere; J84.10 Pulmonary fibrosis, unspecified; D89.9 Disorder involving the immune mechanism, unspecified; E83.39 Other disorders of phosphorus metabolism; Y95 Nosocomial condition; D50.9 Iron deficiency anemia, unspecified; T38.0X5A Adverse effect of glucocorticoids and synthetic analogues, initial encounter; Y92.9 Unspecified place or not applicable; J44.9 Chronic obstructive pulmonary disease, unspecified
CPT/HCPCS: 31720; 36415; 36600; 71045-TC; 80048-TC; 80053-TC; 80061-TC; 80076-TC; 80150; 81000-TC; 82272-TC; 82306; 82728-TC; 82746; 82803-TC; 82962-TC; 83010; 83540-TC; 83605-TC; 83615-TC; 83735-TC; 83880; 84100-TC; 84155; 84165; 84439-TC; 84443-TC; 84484-TC; 84550-TC; 85025-TC; 85045-TC; 85652-TC; 85730-TC; 87040-TC; 87070-TC; 87081-TC; 87086-TC; 87186-TC; 87400; 93307-TC; 94760-TC; 94762-TC; 94799-TC; 97110-TC; 97530-TC; 99082-TC; A4216; A4606; A6402; C1751; C9113; J0278; J1250; J1650; J1940; J2060; J2370; J2543; J2930; J3475; J3480; J3490; J7030; J7040; J7050; J7060; Q9967; Z7610